=== PATIENT | female | born 1985 | race American Indian/Alaskan Native ===

== ENCOUNTER 2018-05-11 11:12 | Emergency (ER) | payer SELFPAY ==
[2018-05-11] MEDS ORDERED: CLEOCIN PO ONE (14:24)
[2018-05-11] MEDS ORDERED: NORCO 5/325 PO ONE (14:24)
[2018-05-11] MEDS ORDERED: MOTRIN PO ONE (14:24)
--- NOTE | 2018-05-11 14:24 | Emergency Department Report ---
HPI - General Chief Complaint: Dental/Oral Time Seen by Provider: 05/11/18 14:12 - HPI HPI: This is a 33-year-old patient here reports wisdom tooth pain to right upper tooth. She reports that this started 3 days ago and she does have access to a dentist but she has not made an appointment to see dentist since. She said her pain is increased at 8 out of 10 in a kid worse with talking and eating. Denies any fever or chills. Denies any nausea or vomiting. Denies any nasal congestion or runny nose. Denies any cough or chest pain. She said she took [id number] Tylenol but it is not helping her pain. Denies any drooling or sore throat. Blood pressure is 169/104. She says she has a history of high blood pressure but she does not take any medication pressure is always elevated when she is in pain. No alleviating factors. ED Past Medical Hx - Past Medical History Previous Medical History?: Yes Hx Hypertension: Yes Hx Heart Attack/AMI: No Hx Congestive Heart Failure: No Hx Diabetes: No Hx Deep Vein Thrombosis: No Hx Renal Disease: No Hx Sickle Cell Disease: No Hx Seizures: No Hx Asthma: No Hx COPD: No Hx HIV: No - Surgical History Past Surgical History?: No - Family History Family history: hypertension - Social History Smoking Status: Former Smoker Substance Use Type: Alcohol - Medications Home Medications: Home Medications Medication Instructions Recorded Confirmed Last Taken Type Azithromycin [Zithromax Z-MAURICE] 250 mg PO DAILY #1 pack 03/19/15 03/01/16 Unknown Rx Ibuprofen [Motrin 600 MG tab] 600 mg PO Q8H PRN #20 tablet 03/19/15 03/01/16 Unknown Rx Acetaminophen/Codeine [Tylenol 1 tab PO Q6H PRN #14 tab 05/11/18 Unknown Rx /Codeine # 3 tab] Clindamycin [Clindamycin CAP] 300 mg PO Q8H 10 Days #30 cap 05/11/18 Unknown Rx Ibuprofen [Motrin] 800 mg PO Q8HR PRN #15 tablet 05/11/18 Unknown Rx ED Review of Systems ROS: Stated complaint: TOOTHACHE Other details as noted in HPI Constitutional: denies: chills, fever Eyes: denies: eye discharge ENT: dental pain. denies: ear pain, throat pain, congestion Respiratory: denies: cough, shortness of breath, wheezing Cardiovascular: denies: chest pain, palpitations Gastrointestinal: denies: nausea, vomiting Genitourinary: discharge Musculoskeletal: denies: back pain, arthralgia Skin: denies: rash, lesions Neurological: denies: headache Physical Exam - Physical Exam Vital Signs: Vital Signs 05/11/18 11:15 Temperature 98 F Pulse Rate 77 Respiratory 18 Rate Blood Pressure 169/104 O2 Sat by Pulse 100 Oximetry Vital Signs 05/11/18 05/11/18 11:15 15:05 Temperature 98 F Pulse Rate 77 Respiratory 18 Rate Blood Pressure 169/104 Blood Pressure 152/90 [Left] O2 Sat by Pulse 100 Oximetry General: This is a 33-year-old female well-nourished well-developed in no acute distress. Physical Exam: Head: Normocephalic atraumatic Ears:BIateral TM pearly milian . Afshin EAC with normal exam. No mastoid bone tenderness. Mouth: Moist, no pharyngeal erythema or exudate . Tongue is normal and oral airways patent. Uvula is midline. No abscess noted but noted dental tenderness around tooth #1 and 16. Noted dental cavities . Lip is normal. Neck: Nontender to palpate, supple, normal range of motion. No adenopathy. No c- spine tenderness. Nose: Bilateral nasal mucosa normal exam maxillary and frontal sinuses non- tender to palpate. Eyes: Bilateral Sclerae and conjunctiva without injection. Bilateral pupils equal and reactive to light. Bilateral lids are normal. Normal accommodation.BEOMI Lungs: Clear to auscultate bilaterally, no rhonchi wheezes or rales. Normal work of breathing and no chest wall tenderness CV: S1, S2. Regular rate and rhythm negative murmur. Capillary refill is less than 3 seconds Skin: Dry and intact, no rashes or lesions. ED Course Vital Signs 05/11/18 11:15 Temperature 98 F Pulse Rate 77 Respiratory 18 Rate Blood Pressure 169/104 O2 Sat by Pulse 100 Oximetry - Reevaluation(s) Reevaluation #1: 05/11/18 15:09 She received Douds 5/325 2 tablets, Motrin 800 mg by mouth and clindamycin. Gen. grams. Emergency room. ED Medical Decision Making - Medical Decision Making This is a 33-year-old female here reports that she is having pain to her with some tenderness upper right and left. She does have access to a dentist. She says her pain has been overwhelming's associate come in 1: Toothache 2: Dental caries Patient given Douds 5/325 2 tablets by mouth, Motrin 800 mg by mouth and clindamycin for angiogram. Emergency room for toothache which with her pain. Her blood pressure is. I discussed with her that she needs to follow-up with a dentist she says she does have a dentist. I told if she cannot get in with her dentist she can follow-up with [facility] and she agrees. Patient discharged home in stable condition with her family, vital signs are stable she is afebrile and her pain is better. Discharged with prescription for Tylenol 3 , Motrin and clindamycin. Critical care attestation.: If time is entered above; I have spent that time in minutes in the direct care of this critically ill patient, excluding procedure time. ED Disposition Clinical Impression: Tooth ache, Dental caries Disposition: TO HOME OR SELFCARE Is pt being admited?: No Does the pt Need Aspirin: No Condition: Stable Instructions: Dental Caries (ED), Toothache (ED) Additional Instructions: Please follow up with dentist as discussed. See alternative dentist and discharge instruction paperwork if needed. Take Motrin for mild to moderate pain and please take this medication with food. Take Tylenol No. 3 for severe pain and please do not drive or operate heavy machinery while taking this medication. Take Clindamycin as instructed Please see floss twice daily Gargle Listerine mouthwash twice daily Referrals: PRIMARY CARE, [Primary Care Provider] - 2-3 Days Kenneth [facility] [Outside] - 2-3 Days Forms: Work/School Release Form(ED)
[2018-05-11 15:06] VITALS: BP 152/90
== END 2018-05-11 15:25 | disposition home or self-care (01) ==
LOC: ED 11:12
DX: K02.9 Dental caries, unspecified (principal); Z88.1 Allergy status to other antibiotic agents; Z87.891 Personal history of nicotine dependence
CPT/HCPCS: 99282

== ENCOUNTER 2019-10-13 06:50 | Emergency (ER) | payer MEDICAID ==
[2019-10-13] MEDS ORDERED: ASPIRIN 325 MG TAB PO ONE (07:06)
--- NOTE | 2019-10-13 07:56 | XRay Report ---
{null, CHEST 1 VIEW INDICATION: Chest Pain. COMPARISON: None FINDINGS: Support devices: None. Heart: Within normal limits. Lungs/Pleura: No acute air space or interstitial disease. Additional findings: None. IMPRESSION: No acute findings. Signer Name: Clifton Perscott Jr, MD Signed: 10/13/2019 7:52 AM Workstation Name: [id number] }
[2019-10-13 08:13] LABS: Basophils # (Auto) 0.1 K/mm3 (0.0-0.1); Basophils % (Auto) 1.5 % (0.0-1.8); Eosinophils # (Auto) 0.1 K/mm3 (0.0-0.4); Eosinophils % (Auto) 1.6 % (0.0-4.3); Hematocrit 41.4 % (30.3-42.9); Hemoglobin 13.9 gm/dl (10.1-14.3); Lymphocytes # (Auto) 1.4 K/mm3 (1.2-5.4); Lymphocytes % (Auto) 29.4 % (13.4-35.0); Mean Corpuscular HGB Conc 34 % (30-34); Mean Corpuscular Volume 99 fl (79-97); Monocytes # (Auto) 0.6 K/mm3 (0.0-0.8); Monocytes % (Auto) 13.1 % (0.0-7.3); Platelet Count 360 K/mm3 (140-440); Red Blood Count 4.17 M/mm3 (3.65-5.03)
[2019-10-13 08:40] LABS: BUN/Creatinine Ratio 15; Blood Urea Nitrogen 9 mg/dL (7-17); Calcium 9.4 mg/dL (8.4-10.2); Hemolysis Index 9
[2019-10-13] MEDS ORDERED: KETOROLAC 30 MG/1 ML INJ IM ONE (08:55)
--- NOTE | 2019-10-13 09:00 | Emergency Department Report ---
{null, ED Chest Pain HPI - General Chief Complaint: Chest Pain Stated Complaint: CHEST PAIN Time Seen by Provider: 10/13/19 08:27 Source: patient Mode of arrival: Ambulatory Limitations: No Limitations - History of Present Illness Initial Comments: 34-year-old female with a history of hypertension who has been noncompliant with her blood pressure medication for the past couple months and hx of tobacco use presents to the ER today complaining of right-sided chest pain. Patient states that for the past week intermittently she has been having this pulling sensation which starts underneath her right breast and radiates into her back. She states that she notices the pain if she moves in certain positions. Pain does not seem to be pleuritic in nature. She denies any associated shortness of breath, she denies any nausea, vomiting, fever, abdominal pain or chills. She denies any history of CAD or dysrhythmia. She denies any history of PE or DVT in the past. She denies trauma but states she MD Complaint: chest pain -: week(s) (1 week) - Related Data Previous Rx's Medication Instructions Recorded Last Taken Type Azithromycin [Zithromax Z-MAURICE] 250 mg PO DAILY #1 pack 03/19/15 Unknown Rx Ibuprofen [Motrin 600 MG tab] 600 mg PO Q8H PRN #20 tablet 03/19/15 Unknown Rx Acetaminophen/Codeine [Tylenol 1 tab PO Q6H PRN #14 tab 05/11/18 Unknown Rx /Codeine # 3 tab] Clindamycin [Clindamycin CAP] 300 mg PO Q8H 10 Days #30 cap 05/11/18 Unknown Rx Amlodipine Besylate [Norvasc] 5 mg PO DAILY #30 tablet 10/13/19 Unknown Rx Cyclobenzaprine [Flexeril] 10 mg PO TID PRN #30 tablet 10/13/19 Unknown Rx Ibuprofen [Motrin 800 MG tab] 800 mg PO Q8HR PRN #15 tablet 10/13/19 Unknown Rx Allergies Allergy/AdvReac Type Severity Reaction Status Date / Time amoxicillin Allergy Itching Verified 08/01/14 02:58 Heart Score - HEART Score History: Slightly suspicious EKG: Normal Age: < 45 Risk factors: 1-2 risk factors Troponin: < normal limit HEART Score: 1 ED Review of Systems ROS: Stated complaint: CHEST PAIN Other details as noted in HPI Constitutional: denies: chills, fever Respiratory: denies: cough, shortness of breath, SOB with exertion, SOB at rest, wheezing Cardiovascular: denies: chest pain, palpitations, dyspnea on exertion, edema Gastrointestinal: denies: nausea, vomiting Genitourinary: denies: urgency, dysuria, frequency, hematuria Musculoskeletal: denies: back pain Neurological: denies: weakness, numbness, paresthesias, abnormal gait Psychiatric: denies: anxiety, depression ED Past Medical Hx - Past Medical History Previous Medical History?: Yes Hx Hypertension: Yes Hx Heart Attack/AMI: No Hx Congestive Heart Failure: No Hx Diabetes: No Hx Deep Vein Thrombosis: No Hx Renal Disease: No Hx Sickle Cell Disease: No Hx Seizures: No Hx Asthma: No Hx COPD: No Hx HIV: No - Surgical History Past Surgical History?: No - Social History Smoking Status: Current Every Day Smoker Substance Use Type: Alcohol - Medications Home Medications: Home Medications Medication Instructions Recorded Confirmed Last Taken Type Azithromycin [Zithromax Z-MAURICE] 250 mg PO DAILY #1 pack 03/19/15 03/01/16 Unknown Rx Ibuprofen [Motrin 600 MG tab] 600 mg PO Q8H PRN #20 tablet 03/19/15 03/01/16 Unknown Rx Acetaminophen/Codeine [Tylenol 1 tab PO Q6H PRN #14 tab 05/11/18 Unknown Rx /Codeine # 3 tab] Clindamycin [Clindamycin CAP] 300 mg PO Q8H 10 Days #30 cap 05/11/18 Unknown Rx Amlodipine Besylate [Norvasc] 5 mg PO DAILY #30 tablet 10/13/19 Unknown Rx Cyclobenzaprine [Flexeril] 10 mg PO TID PRN #30 tablet 10/13/19 Unknown Rx Ibuprofen [Motrin 800 MG tab] 800 mg PO Q8HR PRN #15 tablet 10/13/19 Unknown Rx ED Physical Exam - General Limitations: No Limitations General appearance: alert, in no apparent distress - Head Head exam: Present: atraumatic, normocephalic, normal inspection - Eye Eye exam: Present: normal appearance, PERRL, EOMI - ENT ENT exam: Present: normal exam, normal orophraynx, mucous membranes moist - Respiratory Respiratory exam: Present: normal lung sounds bilaterally, chest wall tenderness (right anterior chest wall, just underneath right breast). Absent: respiratory distress - Cardiovascular Cardiovascular Exam: Present: regular rate, normal rhythm, normal heart sounds - GI/Abdominal GI/Abdominal exam: Present: soft. Absent: distended, tenderness - Extremities Exam Extremities exam: Present: normal inspection, full ROM. Absent: pedal edema, calf tenderness - Neurological Exam Neurological exam: Present: alert, oriented X3, CN II-XII intact, normal gait - Skin Skin exam: Present: intact ED Course Vital Signs 10/13/19 10/13/19 06:53 08:59 Temperature 99.0 F Pulse Rate 104 H 82 Respiratory 18 20 Rate Blood Pressure 152/101 Blood Pressure 143/94 [Right] O2 Sat by Pulse 98 99 Oximetry ED Medical Decision Making - Lab Data Result diagrams: 10/13/19 07:41 10/13/19 07:41 - EKG Data EKG shows normal: sinus rhythm Rate: normal (94) - EKG Data Interpretation: normal EKG - Radiology Data Radiology results: report reviewed CXR show nothing acute - Medical Decision Making 34-year-old female presents to the ER complaining of a pulling sensation that starts underneath her right breast and radiates around into her back. She reports that it seems to be worse with certain movements/positions. She denies any nausea, vomiting, shortness of breath, abdominal pain, diaphoresis or any other symptoms. Chest x-ray, including EKG and labs reviewed and unremarkable. Patient's vital signs have improved during stay. The patient is currently resting comfortably, she is alert and in no distress. Patient's history, diagnostic testing and current condition does not suggest that the patient is having acute myocardial infarction, significant arrhythmia, unstable angina, esophageal perforation, pulmonary embolism (PERC 0), aortic dissection, pneumothorax, severe pneumonia, sepsis or any other significant pathology that would warrant any further testing, continued ED treatment, admission or cardiology consultation at this time. Suspect patient pain is musculoskeletal at this time. Discussed lab results, suspected diagnosis and treatment plan with patient. Discussed the importance of taking her blood pressure medication and being compliant with it. She will be started on Norvasc and she does not remember the name of her blood pressure medicine. She will be given referral to local primary care doctor, but informed if anything changes or worsens to re turn to the ER. Critical care attestation.: If time is entered above; I have spent that time in minutes in the direct care of this critically ill patient, excluding procedure time. ED Disposition Clinical Impression: Right-sided chest wall pain, Atypical chest pain, Uncontrolled hypertension Disposition: - TO HOME OR SELFCARE Is pt being admited?: No Does the pt Need Aspirin: No Condition: Stable Instructions: Chest Pain (ED), Costochondritis (ED), Hypertension (ED) Prescriptions: Cyclobenzaprine [Flexeril] 10 mg PO TID PRN #30 tablet PRN Reason: Muscle Spasm Ibuprofen [Motrin 800 MG tab] 800 mg PO Q8HR PRN #15 tablet PRN Reason: Pain Amlodipine Besylate [Norvasc] 5 mg PO DAILY #30 tablet Referrals: PERRY MORA MD [Staff Physician] - 3-5 Days Forms: Work/School Release Form(ED) Time of Disposition: 09:23 }
[2019-10-13 09:01] VITALS: BP 143/94
== END 2019-10-13 09:35 | disposition home or self-care (01) ==
LOC: ED 06:50
DX: I10 Essential (primary) hypertension (principal); R07.89 Other chest pain; F17.200 Nicotine dependence, unspecified, uncomplicated; Z88.0 Allergy status to penicillin; Z79.899 Other long term (current) drug therapy
CPT/HCPCS: 36415; 71045; 80048; 84484; 85025; 93005; 93010; J1885

== ENCOUNTER 2021-07-11 14:08 | Emergency (ER) | payer MEDICAID ==
[2021-07-11] MEDS ORDERED: ACETAMINOPHEN 500 MG TAB PO STA (14:54)
--- NOTE | 2021-07-11 14:56 | Event Note ---
ED Screening Note Date of service: 07/11/21 Time: 14:54 ED Screening Note: Patient presents with complaints of sudden onset of substernal chest pain radiating through to her back No past heart history or family heart history per patient She does have history of hypertension and has been noncompliant with her amlodipine for 1 month No shortness of breath Pain is described as a pressure that worsens with deep inhalation Patient is on Depo for control Patient is PERC positive This initial assessment/diagnostic orders/clinical plan/treatment(s) is/are subject to change based on patients health status, clinical progression and re- assessment by fellow clinical providers in the ED. Further treatment and workup at subsequent clinical providers discretion. Patient/guardian urged not to elope from the ED as their condition may be serious if not clinically assessed and managed. Initial orders include: Labs EKG Chest x-ray Dimer
[2021-07-11 15:28] LABS: Basophils # (Auto) 0.1 K/mm3 (0.0-0.1); Basophils % (Auto) 1.1 % (0.0-1.8); Eosinophils # (Auto) 0.1 K/mm3 (0.0-0.4); Eosinophils % (Auto) 1.3 % (0.0-4.3); Hematocrit 40.9 % (30.3-42.9); Hemoglobin 13.2 gm/dl (10.1-14.3); Lymphocytes # (Auto) 1.3 K/mm3 (1.2-5.4); Lymphocytes % (Auto) 16.4 % (13.4-35.0); Mean Corpuscular HGB Conc 32 % (30-34); Mean Corpuscular Volume 100 fl (79-97); Monocytes # (Auto) 0.6 K/mm3 (0.0-0.8); Monocytes % (Auto) 7.2 % (0.0-7.3); Platelet Count 325 K/mm3 (140-440); Red Cell Distribution Width 12.9 % (13.2-15.2)
--- NOTE | 2021-07-11 15:47 | XRay Report ---
CHEST 2 VIEWS INDICATION / CLINICAL INFORMATION: chest pain. COMPARISON: One view of the chest from 10/13/2019 FINDINGS: SUPPORT DEVICES: None. HEART / MEDIASTINUM: No significant abnormality. LUNGS / PLEURA: No significant pulmonary abnormality. No significant pleural effusion. No pneumothora x. ADDITIONAL FINDINGS: No significant additional findings. IMPRESSION: 1. No acute abnormality of the chest. Signer Name: Kojo Biswas MD Signed: 07/11/2021 3:43 PM Workstation Name: [id number]
[2021-07-11 15:53] LABS: Alanine Aminotransferase 23 units/L (7-56); Albumin 4.8 g/dL (3.9-5); BUN/Creatinine Ratio 13; Blood Urea Nitrogen 8 mg/dL (7-17); Calcium 9.7 mg/dL (8.4-10.2); Hemolysis Index 3
[2021-07-11] MEDS ORDERED: KETOROLAC 30 MG/1 ML INJ IM ONE (16:37)
--- NOTE | 2021-07-11 17:18 | Emergency Department Report ---
ED Chest Pain HPI - General Chief Complaint: Chest Pain Stated Complaint: CHEST PAIN Time Seen by Provider: 07/11/21 16:19 Source: patient Mode of arrival: Ambulatory Limitations: No Limitations - History of Present Illness Initial Comments: 36-year-old -Stateless female presents to the emergency department with a complaint of some lower midsternal chest pain that radiates around the left side of her chest to her back that started earlier this morning. It worsens with certain movements of her torso and with respirations. Patient says that she has had something similar to this on the right side but never on the left side. She says that it is both a pressure sensation and throbbing. She has a history of hypertension. She denies any tobacco use. No recent travel or sick contacts at home. She has not taken anything for symptoms prior to presentation. No family history of early PR or cardiac disease. She follows with [facility]. She says that her chest pain is about a 6 out of 10 in intensity. Severity scale (0 -10): 2 - Related Data Previous Rx's Medication Instructions Recorded Last Taken Type Azithromycin [Zithromax Z-MAURICE] 250 mg PO DAILY #1 pack 03/19/15 Unknown Rx Acetaminophen/Codeine [Tylenol 1 tab PO Q6H PRN #14 tab 05/11/18 Unknown Rx /Codeine # 3 tab] Clindamycin [Clindamycin CAP] 300 mg PO Q8H 10 Days #30 cap 05/11/18 Unknown Rx Amlodipine Besylate [Norvasc] 5 mg PO DAILY #30 tablet 10/13/19 Unknown Rx Cyclobenzaprine [Flexeril] 10 mg PO TID PRN #30 tablet 10/13/19 Unknown Rx Ibuprofen [Motrin 800 MG tab] 800 mg PO Q8HR PRN #15 tablet 10/13/19 Unknown Rx Naproxen [EC-Naprosyn] 500 mg PO BID PRN #14 tablet. 05/06/20 Unknown Rx Neomycin/Bacitracin/Polymyxinb 1 applicatio TP BID #1 oint...g. 05/06/20 Unknown Rx [Triple Antibiotic Ointment] Sulfamethoxazole/Trimethoprim 1 each PO BID 7 Days #14 tablet 05/06/20 Unknown Rx [Bactrim DS TAB] Cyclobenzaprine [Flexeril] 10 mg PO TID PRN #12 tablet 07/11/21 Unknown Rx Ibuprofen [Motrin 600 MG tab] 600 mg PO Q8H PRN #20 tablet 07/11/21 Unknown Rx Allergies Allergy/AdvReac Type Severity Reaction Status Date / Time amoxicillin Allergy Itching Verified 08/01/14 02:58 Heart Score - HEART Score History: Slightly suspicious EKG: Normal Age: < 45 Risk factors: 1-2 risk factors Troponin: < normal limit HEART Score: 1 - EKG Read Time Time EKG Completed: 14:23 EKG Read Time: 14:25 - Critical Actions Critical Actions: 0-3 pts:0.9-1.7%risk of adverse cardiac event.Candidate for discharge ED Review of Systems ROS: Stated complaint: CHEST PAIN Other details as noted in HPI Comment: All other systems reviewed and negative Constitutional: denies: chills, fever Eyes: denies: eye pain, vision change ENT: denies: ear pain, throat pain Respiratory: shortness of breath. denies: cough Cardiovascular: chest pain. denies: palpitations Gastrointestinal: denies: abdominal pain, vomiting Genitourinary: denies: dysuria, discharge Musculoskeletal: denies: back pain, arthralgia Skin: denies: rash, lesions Neurological: denies: headache, weakness ED Past Medical Hx - Past Medical History Previous Medical History?: Yes Hx Hypertension: Yes Hx Heart Attack/AMI: No Hx Congestive Heart Failure: No Hx Diabetes: No Hx Deep Vein Thrombosis: No Hx Renal Disease: No Hx Sickle Cell Disease: No Hx Seizures: No Hx Asthma: No Hx COPD: No Hx HIV: No - Social History Smoking Status: Former Smoker Substance Use Type: None - Medications Home Medications: Home Medications Medication Instructions Recorded Confirmed Last Taken Type Azithromycin [Zithromax Z-MAURICE] 250 mg PO DAILY #1 pack 03/19/15 03/01/16 Unknown Rx Acetaminophen/Codeine [Tylenol 1 tab PO Q6H PRN #14 tab 05/11/18 Unknown Rx /Codeine # 3 tab] Clindamycin [Clindamycin CAP] 300 mg PO Q8H 10 Days #30 cap 05/11/18 Unknown Rx Amlodipine Besylate [Norvasc] 5 mg PO DAILY #30 tablet 10/13/19 Unknown Rx Cyclobenzaprine [Flexeril] 10 mg PO TID PRN #30 tablet 10/13/19 Unknown Rx Ibuprofen [Motrin 800 MG tab] 800 mg PO Q8HR PRN #15 tablet 10/13/19 Unknown Rx Naproxen [EC-Naprosyn] 500 mg PO BID PRN #14 tablet. 05/06/20 Unknown Rx Neomycin/Bacitracin/Polymyxinb 1 applicatio TP BID #1 oint...g. 05/06/20 Unknown Rx [Triple Antibiotic Ointment] Sulfamethoxazole/Trimethoprim 1 each PO BID 7 Days #14 tablet 05/06/20 Unknown Rx [Bactrim DS TAB] Cyclobenzaprine [Flexeril] 10 mg PO TID PRN #12 tablet 07/11/21 Unknown Rx Ibuprofen [Motrin 600 MG tab] 600 mg PO Q8H PRN #20 tablet 07/11/21 Unknown Rx ED Physical Exam - General Limitations: No Limitations - Other Other exam information: GENERAL: The patient is well-developed well-nourished. HENT: Normocephalic. Atraumatic. Patient has moist mucous membranes. EYES: Extraocular motions are intact. NECK: Supple. Trachea is midline. CHEST/LUNGS: Clear to auscultation. There is no respiratory distress noted. HEART/CARDIOVASCULAR: Regular. There is no tachycardia. There is no murmur. ABDOMEN: Abdomen is soft, nontender. Patient has normal bowel sounds. SKIN: Skin is warm and dry. NEURO: The patient is awake, alert, and oriented. The patient is cooperative. The patient has no focal neurologic deficits. Normal speech. MUSCULOSKELETAL: There is no tenderness or deformity. There is no limitation range of motion. BACK: No midline thoracic or lumbar tenderness to palpation. There is some reproducible left thoracic paraspinal tenderness to palpation. ED Course Vital Signs 07/11/21 07/11/21 07/11/21 14:46 15:49 16:55 Pulse Rate 87 Respiratory 18 16 16 Rate Blood Pressure 163/112 O2 Sat by Pulse 100 Oximetry 07/11/21 18:34 Pulse Rate 84 Respiratory 16 Rate Blood Pressure 123/82 O2 Sat by Pulse 100 Oximetry ZOEY score - Zoey Score Age > 65: (0) No Aspirin use within the Past 7 Days: (0) No 3 or more CAD Risk Factors: (0) No 2 or more Angina events in past 24 hrs: (1) Yes Known CAD with more than 50% Stenosis: (0) No Elevated Cardiac Markers: (0) No ST Deviation Greater than 0.5mm: (0) No ZOEY Score: 1 ED Medical Decision Making - Lab Data Result diagrams: 07/11/21 15:11 07/11/21 15:11 Lab Results 07/11/21 07/11/21 07/11/21 Range/Units 15:11 15:11 15:11 WBC 8.0 (4.5-11.0) K/mm3 RBC 4.10 (3.65-5.03) M/mm3 Hgb 13.2 (10.1-14.3) gm/dl Hct 40.9 (30.3-42.9) % MCV 100 H (79-97) fl MCH 32 (28-32) pg MCHC 32 (30-34) % RDW 12.9 L (13.2-15.2) % Plt Count 325 (140-440) K/mm3 Lymph % (Auto) 16.4 (13.4-35.0) % [place] % (Auto) 7.2 (0.0-7.3) % Eos % (Auto) 1.3 (0.0-4.3) % Baso % (Auto) 1.1 (0.0-1.8) % Lymph # (Auto) 1.3 (1.2-5.4) K/mm3 [place] # (Auto) 0.6 (0.0-0.8) K/mm3 Eos # (Auto) 0.1 (0.0-0.4) K/mm3 Baso # (Auto) 0.1 (0.0-0.1) K/mm3 Seg Neutrophils % 74.0 H (40.0-70.0) % Seg Neutrophils # 5.9 (1.8-7.7) K/mm3 D-Dimer < 135.00 (0-234) ng/mlDDU Sodium 139 (137-145) mmol/L Potassium 4.3 (3.6-5.0) mmol/L Chloride 101.4 (98-107) mmol/L Carbon Dioxide 23 (22-30) mmol/L Anion Gap 19 mmol/L BUN 8 (7-17) mg/dL Creatinine 0.6 (0.6-1.2) mg/dL Estimated GFR > 60 ml/min BUN/Creatinine Ratio 13 % Glucose 107 H (65-100) mg/dL Calcium 9.7 (8.4-10.2) mg/dL Total Bilirubin 0.20 (0.1-1.2) mg/dL AST 22 (5-40) units/L ALT 23 (7-56) units/L Alkaline Phosphatase 66 (35-129) units/L Troponin T < 0.010 (0.00-0.029) ng/mL Total Protein 7.6 (6.3-8.2) g/dL Albumin 4.8 (3.9-5) g/dL Albumin/Globulin Ratio 1.7 % 07/11/ Range/Units 17:06 WBC (4.5-11.0) K/mm3 RBC (3.65-5.03) M/mm3 Hgb (10.1-14.3) gm/dl Hct (30.3-42.9) % MCV (79-97) fl MCH (28-32) pg MCHC (30-34) % RDW (13.2-15.2) % Plt Count (140-440) K/mm3 Lymph % (Auto) (13.4-35.0) % [place] % (Auto) (0.0-7.3) % Eos % (Auto) (0.0-4.3) % Baso % (Auto) (0.0-1.8) % Lymph # (Auto) (1.2-5.4) K/mm3 [place] # (Auto) (0.0-0.8) K/mm3 Eos # (Auto) (0.0-0.4) K/mm3 Baso # (Auto) (0.0-0.1) K/mm3 Seg Neutrophils % (40.0-70.0) % Seg Neutrophils # (1.8-7.7) K/mm3 D-Dimer (0-234) ng/mlDDU Sodium (137-145) mmol/L Potassium (3.6-5.0) mmol/L Chloride (98-107) mmol/L Carbon Dioxide (22-30) mmol/L Anion Gap mmol/L BUN (7-17) mg/dL Creatinine (0.6-1.2) mg/dL Estimated GFR ml/min BUN/Creatinine Ratio % Glucose (65-100) mg/dL Calcium (8.4-10.2) mg/dL Total Bilirubin (0.1-1.2) mg/dL AST (5-40) units/L ALT (7-56) units/L Alkaline Phosphatase (35-129) units/L Troponin T < 0.010 (0.00-0.029) ng/mL Total Protein (6.3-8.2) g/dL Albumin (3.9-5) g/dL Albumin/Globulin Ratio % - EKG Data -: EKG Interpreted by Me EKG shows normal: sinus rhythm, axis, intervals, QRS complexes, ST-T waves Rate: normal - EKG Data When compared to previous EKG there are: no significant change Interpretation: unchanged when compared t (10/13/19) - Radiology Data Radiology results: image reviewed interpreted by me: Chest x-ray does not show any acute process. There are no pleural effusions, obvious pneumonia and there is no pneumothorax. No widened mediastinum. - Medical Decision Making This patient presents with some left-sided chest pain that wraps around to her back that started this morning. On examination she has normal sounding heart and lungs to auscultation and does not appear in any respiratory or acute distress. EKG is normal without any morphology consistent with ST elevation myocardial infarction. Chest x-ray does not show any pneumonia, pleural effusions, pneumothorax or widened mediastinum, or any other acute process. Labs have been unremarkable including CBC, metabolic panel, negative troponins x2, and a negative D-dimer. The patient was given a dose of Toradol and previous to that was given Tylenol and a muscle relaxer. Upon reevaluation she is feeling greatly improved. The patient is low on the heart and ZOEY score. She also has good outpatient follow-up with [facility] and is already been established with them. Vital signs have been reassuring throughout her ED course including being afebrile. For all these reasons she appears safe for discharge home at this time. She will return to the emergency department with any worsening of her symptoms or with any acute distress. Critical Care Time: No Critical care attestation.: If time is entered above; I have spent that time in minutes in the direct care of this critically ill patient, excluding procedure time. ED Disposition Clinical Impression: Atypical chest pain Hypertension Qualifiers: Hypertension type: primary hypertension Qualified Code(s): I10 - Essential (primary) hypertension Disposition: 01 HOME / SELF CARE / HOMELESS Is pt being admited?: No Condition: Stable Instructions: Nonspecific Chest Pain, Adult, Hypertension, Adult, Hypertension (ED) Additional Instructions: Please follow-up with a primary care physician in the next few days. [facility] Take your home medications as previously prescribed. Try to stay away from foods that are high in salt and caffeinated products. Keep a blood pressure log. You have been prescribed a medication that is sedating and therefore should not be taken prior to driving, working, and responsible for children and in no way should be mixed with alcohol of any quantity. Return to the emergency department with any worsening of your symptoms, new or concerning symptoms not addressed during this current emergency department visit, or with any acute distress. Prescriptions: Cyclobenzaprine [Flexeril] 10 mg PO TID PRN #12 tablet PRN Reason: Muscle Spasm Ibuprofen [Motrin 600 MG tab] 600 mg PO Q8H PRN #20 tablet PRN Reason: Pain Referrals: PRIMARY CAREMD [Primary Care Provider] - 2-3 Days [facility] [Provider Group] - 2-3 Days Forms: Work/School Release Form(ED) Time of Disposition: 18:21
[2021-07-11 18:37] VITALS: BP 123/82
--- NOTE | 2021-07-12 08:41 | Electrocardiograph Report ---
[facility] Test Date: 2021-07-11 Test Time: 14:23:12 Pat Name: KERA BOONE Department: Room: Gender: F [employer]: JELANI : 1985 Requested By: CAROLE FORD Order Number: [id number] Reading MD: Imtiaz Anderson Measurements Intervals [place] Rate: 76 P: 59 CO: 141 QRS: 45 QRSD: 84 T: 24 QT: 393 QTc: 443 Interpretive Statements Sinus rhythm No previous ECG available for comparison Electronically Signed On 07-12-2021 8:41:06 EST by Imtiaz Anderson
== END 2021-07-11 18:36 | disposition home or self-care (01) ==
LOC: ED 14:08
DX: R07.89 Other chest pain (principal); I10 Essential (primary) hypertension; Z87.891 Personal history of nicotine dependence; Z88.0 Allergy status to penicillin
CPT/HCPCS: 36415; 71046; 80053; 84484; 85025; 85379; 93005; 96372; 99284; J1885

== ENCOUNTER 2021-08-08 12:03 | Emergency (ER) | payer MEDICAID ==
[2021-08-08 12:12] VITALS: BP 146/90
== END 2021-08-08 16:00 ==
LOC: ED 12:03
DX: K08.89 Other specified disorders of teeth and supporting structures (principal); Z53.21 Procedure and treatment not carried out due to patient leaving prior to being seen by health care provider

== ENCOUNTER 2021-09-08 02:22 | Emergency (ER) | payer MEDICAID ==
[2021-09-08] MEDS ORDERED: CLINDAMYCIN 300 MG CAP PO ONE (02:55)
[2021-09-08] MEDS ORDERED: ACETAMINOPHEN W/CODEINE 300-30 MG TAB PO ONE (02:55)
[2021-09-08] MEDS ORDERED: IBUPROFEN 400 MG TAB PO ONE (03:09)
--- NOTE | 2021-09-08 03:13 | Emergency Department Report ---
ED General Adult HPI - General Chief complaint: Dental/Oral Stated complaint: TOOTHACHE PUI?: No Time Seen by Provider: 09/08/21 02:59 Source: patient, RN notes reviewed, old records reviewed Mode of arrival: Ambulatory Limitations: No Limitations - History of Present Illness Initial comments: The patient was evaluated in the emergency department for symptoms described in the history of present illness. He/she was evaluated in the context of the global COVID-19 pandemic, which necessitated consideration that the patient demetrius ht be at risk for infection with the virus that causes COVID-19. Institutional protocols and algorithms that pertain to the evaluation of patients at risk for COVID-19 are in a state of rapid change based on information released by regulatory bodies including the CDC and federal and state organizations. These policies and algorithms were followed during the patient's care in the emergency department. Please note that these policies, procedures and recommendations changed on a rapid basis. 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 She has sensitivity to cold. She has no additional injuries or complaints. She has an appointment with a dentist in about a week. She brushes her teeth sporadically. She does not floss on a regular basis. No additional injuries or complaints -: Gradual, week(s) Location: mouth Quality: aching Consistency: constant Improves with: rest Worsens with: eating Associated Symptoms: denies other symptoms - Related Data Previous Rx's Medication Instructions Recorded Last Taken Type Amlodipine Besylate [Norvasc] 5 mg PO DAILY #30 tablet 10/13/19 Unknown Rx Ibuprofen [Motrin 600 MG tab] 600 mg PO Q8H PRN #20 tablet 07/11/21 Unknown Rx Acetaminophen [Non-Aspirin Extra 500 mg PO Q6HR PRN #30 tablet 09/08/21 Unknown Rx Strength] Chlorhexidine Mouthwash [Peridex] 15 ml MM BID #1 bottle 09/08/21 Unknown Rx Ibuprofen [Motrin] 600 mg PO Q8H PRN #30 tablet 09/08/21 Unknown Rx Morphine Sulfate [Morphine Sulfate 7.5 mg PO Q6HR PRN #10 tablet 09/08/21 Unknown Rx IR] Allergies Allergy/AdvReac Type Severity Reaction Status Date / Time amoxicillin Allergy Itching Verified 09/08/21 02:49 ED Review of Systems ROS: Stated complaint: TOOTHACHE Other details as noted in HPI Constitutional: denies: fever Eyes: denies: eye discharge ENT: dental pain. denies: epistaxis Respiratory: denies: cough Cardiovascular: denies: chest pain Gastrointestinal: denies: abdominal pain Psychiatric: anxiety ED Past Medical Hx - Past Medical History Hx Hypertension: Yes Hx Heart Attack/AMI: No Hx Congestive Heart Failure: No Hx Diabetes: No Hx Deep Vein Thrombosis: No Hx Renal Disease: No Hx Sickle Cell Disease: No Hx Seizures: No Hx Asthma: No Hx COPD: No Hx HIV: No - Surgical History Past Surgical History?: No - Social History Smoking Status: Former Smoker Substance Use Type: None - Medications Home Medications: Home Medications Medication Instructions Recorded Confirmed Last Taken Type Amlodipine Besylate [Norvasc] 5 mg PO DAILY #30 tablet 10/13/19 Unknown Rx Ibuprofen [Motrin 600 MG tab] 600 mg PO Q8H PRN #20 tablet 07/11/21 Unknown Rx Acetaminophen [Non-Aspirin Extra 500 mg PO Q6HR PRN #30 tablet 09/08/21 Unknown Rx Strength] Chlorhexidine Mouthwash [Peridex] 15 ml MM BID #1 bottle 09/08/21 Unknown Rx Ibuprofen [Motrin] 600 mg PO Q8H PRN #30 tablet 09/08/21 Unknown Rx Morphine Sulfate [Morphine Sulfate 7.5 mg PO Q6HR PRN #10 tablet 09/08/21 Unknown Rx IR] ED Physical Exam - General Limitations: No Limitations General appearance: alert, anxious, obese - Head Head exam: Present: atraumatic, normocephalic - Eye Eye exam: Present: normal appearance, EOMI. Absent: nystagmus - ENT ENT exam: Present: normal exam, normal orophraynx, mucous membranes moist, no rmal external ear exam, other (The patient is not stridulous. The base of the tongue is not elevated. There is dental tenderness to percussion on teeth #14, 13, 19 and 20. Dental caries noted) - Neck Neck exam: Present: normal inspection, full ROM. Absent: tenderness, meningismus - Respiratory Respiratory exam: Present: normal lung sounds bilaterally. Absent: respiratory distress, wheezes, rales, rhonchi, stridor, decreased breath sounds - Cardiovascular Cardiovascular Exam: Present: regular rate, normal rhythm, normal heart sounds. Absent: bradycardia, tachycardia, irregular rhythm, systolic murmur, diastolic murmur, rubs, gallop - GI/Abdominal GI/Abdominal exam: Present: soft. Absent: distended, tenderness, guarding, rebound, rigid, pulsatile mass - Extremities Exam Extremities exam: Present: normal inspection, full ROM, other (2+ pulses noted in the bilateral upper and lower extremities. There is no palpable cord. negative Homans sign. Muscular compartments are soft. The pelvis is stable.). Absent: pedal edema, calf tenderness - Back Exam Back exam: Present: normal inspection, full ROM. Absent: tenderness, CVA tenderness (R), CVA tenderness (L), paraspinal tenderness, vertebral tenderness - Neurological Exam Neurological exam: Present: alert, oriented X3, normal gait, other (No facial droop. Tongue midline. Extraocular movements intact bilaterally. Facial sensation intact to light touch in V1, V2, V3 distribution bilaterally. 5 and a 5 strength in 4 extremities. Sensation intact to light touch in 4 extremities.). Absent: motor sensory deficit - Psychiatric Psychiatric exam: Present: anxious - Skin Skin exam: Present: warm, dry, intact, normal color. Absent: rash ED Course Vital Signs 09/08/21 09/08/21 09/08/21 02:45 03:32 03:42 Temperature 98.2 F Pulse Rate 82 Respiratory 22 12 14 Rate Blood Pressure 181/114 Blood Pressure [Right] O2 Sat by Pulse 100 Oximetry 09/08/21 04:17 Temperature 98.5 F Pulse Rate 76 Respiratory 16 Rate Blood Pressure Blood Pressure 155/109 [Right] O2 Sat by Pulse 100 Oximetry ED Medical Decision Making - Lab Data Vital Signs 09/08/21 02:45 Temperature 98.2 F Pulse Rate 82 Respiratory 22 Rate Blood Pressure 181/114 O2 Sat by Pulse 100 Oximetry - Medical Decision Making Differential diagnosis, including but not limited to: Dentalgia, dental caries, encounter for medical screening examination Assessment and plan: 36-year-old female who is afebrile with reassuring vital signs with exception of elevated blood pressure (please reference the [employer] clinical policy on asymptomatic hypertension), who reports that she is not , and reports that 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 C is not stridulous, she is protecting her airway, and she is anxious. Counseled patient on need to closely follow-up with an outpatient dentist. Patient also provided with contact information of local dentists. Counseled to brush teeth twice daily, and floss once daily. Critical care attestation.: If time is entered above; I have spent that time in minutes in the direct care of this critically ill patient, excluding procedure time. ED Disposition Clinical Impression: Dentalgia Disposition: HOME / SELF CARE / HOMELESS Is pt being admited?: No Does the pt Need Aspirin: No Condition: Good Instructions: Preventive Dental Care, Adult Additional Instructions: Recommend the patient follow-up with an outpatient dentist for definitive treatment. [place] teeth twice daily, floss once daily. Use the antibiotic mouthwash as directed, pain medication as needed and directed. Please return to the emergency room right away with new pain, worsened pain, migration of pain, projectile vomiting, change in mental status, confusion, inability tolerate liquid feeds, new, worsened or different symptoms not present on the initial emergency room evaluation Prescriptions: Morphine Sulfate [Morphine Sulfate IR] 7.5 mg PO Q6HR PRN #10 tablet PRN Reason: Pain , Severe (7-10) Ibuprofen [Motrin] 600 mg PO Q8H PRN #30 tablet PRN Reason: Pain Acetaminophen [Non-Aspirin Extra Strength] 500 mg PO Q6HR PRN #30 tablet PRN Reason: Pain , Severe (7-10) Chlorhexidine Mouthwash [Peridex] 15 ml MM BID #1 bottle Referrals: [facility] [Outside] - 3-5 Days
[2021-09-08] MEDS ORDERED: ACETAMINOPHEN 325 MG TAB PO STA (03:37)
[2021-09-08 04:17] VITALS: BP 155/109
== END 2021-09-08 04:18 | disposition home or self-care (01) ==
LOC: ED 02:22
DX: K08.89 Other specified disorders of teeth and supporting structures (principal); Z88.0 Allergy status to penicillin; Z87.891 Personal history of nicotine dependence
CPT/HCPCS: 99282

== ENCOUNTER 2022-02-28 18:36 | Emergency (ER) | payer MEDICAID ==
[2022-02-28 19:23] VITALS: BP 188/114
== END 2022-03-01 19:00 | disposition left against medical advice (07) ==
LOC: ED 18:36
DX: K04.7 Periapical abscess without sinus (principal); I10 Essential (primary) hypertension; Z53.21 Procedure and treatment not carried out due to patient leaving prior to being seen by health care provider

== ENCOUNTER 2022-04-20 06:27 | Emergency (ER) | payer MEDICAID ==
[2022-04-20 07:43] VITALS: BP 154/104
--- NOTE | 2022-04-20 09:19 | Emergency Department Report ---
ED ENT HPI - General Chief complaint: Dental/Oral Stated complaint: TOOTHACHE Source: patient Mode of arrival: Ambulatory Limitations: No Limitations - History of Present Illness Initial comments: Patient complaint tooth ache x2 weeks. Patient states she has been taking clindamycin without any relief. States she took Tylenol 3 this morning with mild relief. She states that she needs to see an oral surgeon to have her tooth removed. Patient is alert and oriented x3. No acute distress noted no ill appearance noted. MD complaint: tooth pain Onset/Timin Severity: moderate Severity scale (0 -10): 8 Quality: aching Consistency: intermittent Improves with: none Worsens with: none - Related Data Previous Rx's Medication Instructions Recorded Last Taken Type Amlodipine Besylate [Norvasc] 5 mg PO DAILY #30 tablet 10/13/19 Unknown Rx Ibuprofen [Motrin 600 MG tab] 600 mg PO Q8H PRN #20 tablet 07/11/21 Unknown Rx Acetaminophen [Non-Aspirin Extra 500 mg PO Q6HR PRN #30 tablet 09/08/21 Unknown Rx Strength] Chlorhexidine Mouthwash [Peridex] 15 ml MM BID #1 bottle 09/08/21 Unknown Rx Ibuprofen [Motrin] 600 mg PO Q8H PRN #30 tablet 09/08/21 Unknown Rx Morphine Sulfate [Morphine Sulfate 7.5 mg PO Q6HR PRN #10 tablet 09/08/21 Unknown Rx IR] Clindamycin [Clindamycin CAP] 600 mg PO BID 10 Days #20 capsule 04/20/22 Unknown Rx traMADoL [Ultram] 50 mg PO Q4HR PRN 3 Days #12 tablet 04/20/22 Unknown Rx Allergies Allergy/AdvReac Type Severity Reaction Status Date / Time amoxicillin Allergy Itching Verified 09/08/21 02:49 ED Dental HPI - General Chief complaint: Dental/Oral Stated complaint: TOOTHACHE Source: patient Mode of arrival: Ambulatory Limitations: No Limitations - Related Data Previous Rx's Medication Instructions Recorded Last Taken Type Amlodipine Besylate [Norvasc] 5 mg PO DAILY #30 tablet 10/13/19 Unknown Rx Ibuprofen [Motrin 600 MG tab] 600 mg PO Q8H PRN #20 tablet 07/11/21 Unknown Rx Acetaminophen [Non-Aspirin Extra 500 mg PO Q6HR PRN #30 tablet 09/08/21 Unknown Rx Strength] Chlorhexidine Mouthwash [Peridex] 15 ml MM BID #1 bottle 09/08/21 Unknown Rx Ibuprofen [Motrin] 600 mg PO Q8H PRN #30 tablet 09/08/21 Unknown Rx Morphine Sulfate [Morphine Sulfate 7.5 mg PO Q6HR PRN #10 tablet 09/08/21 Unknown Rx IR] Clindamycin [Clindamycin CAP] 600 mg PO BID 10 Days #20 capsule 04/20/22 Unknown Rx traMADoL [Ultram] 50 mg PO Q4HR PRN 3 Days #12 tablet 04/20/22 Unknown Rx Allergies Allergy/AdvReac Type Severity Reaction Status Date / Time amoxicillin Allergy Itching Verified 09/08/21 02:49 ED Review of Systems ROS: Stated complaint: TOOTHACHE Other details as noted in HPI Constitutional: denies: chills, fever Eyes: denies: eye pain, eye discharge, vision change ENT: denies: ear pain, throat pain Respiratory: denies: cough, shortness of breath, wheezing Cardiovascular: denies: chest pain, palpitations Endocrine: no symptoms reported Gastrointestinal: denies: abdominal pain, nausea, diarrhea Genitourinary: denies: urgency, dysuria, discharge Musculoskeletal: denies: back pain, joint swelling, arthralgia Skin: denies: rash, lesions Neurological: denies: headache, weakness, paresthesias Psychiatric: denies: anxiety, depression Hematological/Lymphatic: denies: easy bleeding, easy bruising ED Past Medical Hx - Past Medical History Hx Hypertension: Yes Hx Heart Attack/AMI: No Hx Congestive Heart Failure: No Hx Diabetes: No Hx Deep Vein Thrombosis: No Hx Renal Disease: No Hx Sickle Cell Disease: No Hx Seizures: No Hx Asthma: No Hx COPD: No Hx HIV: No - Social History Smoking Status: Former Smoker - Medications Home Medications: Home Medications Medication Instructions Recorded Confirmed Last Taken Type Amlodipine Besylate [Norvasc] 5 mg PO DAILY #30 tablet 10/13/19 Unknown Rx Ibuprofen [Motrin 600 MG tab] 600 mg PO Q8H PRN #20 tablet 07/11/21 Unknown Rx Acetaminophen [Non-Aspirin Extra 500 mg PO Q6HR PRN #30 tablet 09/08/21 Unknown Rx Strength] Chlorhexidine Mouthwash [Peridex] 15 ml MM BID #1 bottle 09/08/21 Unknown Rx Ibuprofen [Motrin] 600 mg PO Q8H PRN #30 tablet 09/08/21 Unknown Rx Morphine Sulfate [Morphine Sulfate 7.5 mg PO Q6HR PRN #10 tablet 09/08/21 Unknown Rx IR] Clindamycin [Clindamycin CAP] 600 mg PO BID 10 Days #20 capsule 04/20/22 Unknown Rx traMADoL [Ultram] 50 mg PO Q4HR PRN 3 Days #12 tablet 04/20/22 Unknown Rx ED Physical Exam - General Limitations: No Limitations General appearance: alert, in no apparent distress - Head Head exam: Present: atraumatic, normocephalic - Eye Eye exam: Present: normal appearance - ENT ENT exam: Present: mucous membranes moist - Expanded ENT Exam Expanded Mouth exam: Absent: drooling, trismus, tongue normal Teeth exam: Present: dental caries, fractured tooth # - Neck Neck exam: Present: normal inspection - Respiratory Respiratory exam: Present: normal lung sounds bilaterally. Absent: respiratory distress - Cardiovascular Cardiovascular Exam: Present: regular rate, normal rhythm. Absent: systolic murmur, diastolic murmur, rubs, gallop - GI/Abdominal GI/Abdominal exam: Present: soft, normal bowel sounds - Extremities Exam Extremities exam: Present: normal inspection - Back Exam Back exam: Present: normal inspection - Neurological Exam Neurological exam: Present: alert, oriented X3 - Psychiatric Psychiatric exam: Present: normal affect, normal mood - Skin Skin exam: Present: warm, dry, intact, normal color. Absent: rash ED Course Vital Signs 04/20/22 07:39 Temperature 98.6 F Pulse Rate 100 H Blood Pressure 154/104 [Left] O2 Sat by Pulse 99 Oximetry ED Medical Decision Making - Medical Decision Making Patient complaint tooth ache x2 weeks. Patient states she has been taking clindamycin without any relief. States she took Tylenol 3 this morning with mild relief. She states that she needs to see an oral surgeon to have her tooth removed. Patient is alert and oriented x3. No acute distress noted no ill appearance noted. Physical examination patient has a multiple dental cavity. Rechecked the patient is resting quietly , comfortable and feeling better. I discussed the results of diagnostic study, my clinical impression and the plan for further treatment with the patient. Patient agrees with plan and discharge at this present time. All question addressed. I have given the patient instruction regarding a diagnosis ,expectation ,follow- up and return precaution. I explained to the patient that emergent condition may arise and to return to the ED for new worsen and any new persisting condition. I have explained the importance of following up with the primary care physician or referral physician listed below has instructed. The patient verbalized understanding of discharge instruction. Critical care attestation.: If time is entered above; I have spent that time in minutes in the direct care of this critically ill patient, excluding procedure time. ED Disposition Clinical Impression: Dental cavity Disposition: HOME / SELF CARE / HOMELESS Is pt being admited?: No Does the pt Need Aspirin: No Condition: Stable Instructions: Preventive Dental Care, Adult Additional Instructions: Take medication as prescribed Return to the ED for any worsening symptom Follow-up with your dentist of your choice Prescriptions: Clindamycin [Clindamycin CAP] 600 mg PO BID 10 Days #20 capsule traMADoL [Ultram] 50 mg PO Q4HR PRN 3 Days #12 tablet PRN Reason: Pain Referrals: [facility] [Outside] - 3-5 Days [facility] [Outside] - 3-5 Days [facility] [Outside] - 3-5 Days Forms: Work/School Release Form(ED) Time of Disposition: 09:20
== END 2022-04-20 09:45 | disposition home or self-care (01) ==
LOC: ED 06:27
DX: K02.9 Dental caries, unspecified (principal); I10 Essential (primary) hypertension; Z87.891 Personal history of nicotine dependence; Z88.1 Allergy status to other antibiotic agents; Z79.899 Other long term (current) drug therapy
CPT/HCPCS: 99282